=== PATIENT | male | born 1990 | race Caucasian/White ===

== ENCOUNTER 2017-03-22 12:01 | Emergency (ER) | payer BC, OTHER ==
[2017-03-22] MEDS ORDERED: Ibuprofen 800 MG TAB ONE (13:01)
--- NOTE | 2017-03-22 20:51 | RAD ---
RIGHT KNEE FOUR VIEWS 03/22/17 No fracture, dislocation, or acute bony change was visible. Placement of the patella seems normal. Th ere was evidence of a small joint effusion but not a large one. The joint space is normal in width. IMPRESSION: Probable small joint effusion. No acute changes otherwise. POS: HOME
== END 2017-03-22 13:22 | disposition home or self-care (01) ==
LOC: BURERS 12:01
DX: M23.91 Unspecified internal derangement of right knee (principal); I10 Essential (primary) hypertension; Z87.891 Personal history of nicotine dependence